=== PATIENT | male | born 1985 | race Caucasian/White ===

== ENCOUNTER 2016-12-08 21:01 | Emergency (ER) | payer SELFPAY ==
[2016-12-08 21:37] VITALS: BP 149/93; O2SAT 99
--- NOTE | 2016-12-08 22:32 | ED.PDOC ---
History of Present Illness - General Chief Complaint: General Stated Complaint: painful urination, toothache Time Seen by Provider: 12/08/16 21:28 Source: patient, RN notes reviewed, Vital Signs reviewed Exam Limitations: no limitations - History of Present Illness Initial Comments: Patient comes in with burning with urination for the past 4-5 days. Denies penile discharge. No abdominal, back or testicular pain. Reports only one sexual partner for the past 9 years. He also is c/o a toothache for the past 3 days. R lower molar. Does not have a dentist. Timing/Duration: constant - 4-5 days Severity: moderate Improving Factors: nothing Worsening Factors: other - urinating Associated Symptoms: denies symptoms Allergies/Adverse Reactions: Allergies NO KNOWN ALLERGY Allergy (Verified 12/08/16 21:36) Home Medications: Ambulatory Orders Amoxicillin [Amoxil] 500 mg PO TID #21 cap 12/08/16 Review of Systems - Review of Systems Constitutional: States: no symptoms reported EENTM: States: see HPI, mouth pain - Toothache Respiratory: States: no symptoms reported Cardiology: States: no symptoms reported Gastrointestinal/Abdominal: States: no symptoms reported Genitourinary: States: see HPI, dysuria. Denies: frequency Musculoskeletal: States: no symptoms reported Skin: States: no symptoms reported Neurological: States: no symptoms reported All other Systems: No Change from Baseline Past Medical History (General) - Patient Medical History Hx Seizures: No Hx Stroke: No Hx Dementia: No Hx Asthma: No Hx of COPD: No Hx Cardiac Disorders: No Hx Congestive Heart Failure: No Hx Pacemaker: No Hx Hypertension: No Hx Thyroid Disease: No Hx Diabetes: No Hx Gastroesophageal Reflux: No Hx Renal Disease: No Hx Cancer: No Hx of HIV: No Hx Hepatitis C: No Hx MRSA: No Surgical History: no surgical history - Vaccination History Hx Tetanus, Diphtheria Vaccination: Yes Hx Influenza Vaccination: No Hx Pneumococcal Vaccination: No - Social History Hx Tobacco Use: No Hx Chewing Tobacco Use: No Hx Alcohol Use: No Hx Substance Use: No Hx Substance Use Treatment: No Hx Depression: No Feels Threatened In Home Enviroment: No Feels Threatened In a Relationship: No Hx Physical Abuse: No Hx Emotional Abuse: No Hx Suspected Abuse: No Family Medical History - Family History Mother Family History: Unknown Physical Exam - Physical Exam General Appearance: Alert, Comfortable, No apparent distress, Well Developed, Well Groomed, Well Hydrated, Well Nourished Ears, Nose, Throat: other - dental caries R lower 2nd molar, no gum swelling or erythema Neck: normal inspection Respiratory: lungs clear, normal breath sounds, no respiratory distress, no accessory muscle use Cardiovascular/Chest: regular rate, rhythm, no gallop, no murmur Gastrointestinal/Abdominal: normal bowel sounds, non tender, soft, no organomegaly, other - : normal penis, scrotum and testicles. No erythema or tenderness. Neurologic: alert, normal mood/affect, oriented x 3 Skin Exam: normal color, warm/dry Lymphatic: no adenopathy - no inguinal adenopathy. Comments: Vital Signs 12/08/16 21:05 Temperature 101.0 F H Pulse Rate [ 99 H monitor] Respiratory 18 Rate Blood Pressure 149/93 [Right Arm] O2 Sat by Pulse 99 Oximetry Progress - Results/Orders Results/Orders: Laboratory Tests 12/08/16 12/08/16 12/08/16 21:40 23:20 23:20 WBC 5.8 RBC 4.21 L Hgb 13.5 L Hct 39.1 L MCV 92.9 MCH 32.0 H MCHC 34.4 RDW 12.7 Plt Count 174 MPV 8.1 Absolute Neuts (auto) 4.90 Absolute Lymphs (auto) 0.30 L Absolute Monos (auto) 0.50 Absolute Eos (auto) 0.00 Absolute Basos (auto) 0.10 Neutrophils % 84.1 H Lymphocytes % 5.4 L Monocytes % 8.9 Eosinophils % 0.0 L Basophils % 1.6 Sodium 133 L Potassium 3.7 Chloride 98 L Carbon Dioxide 26 Anion Gap 12.7 BUN 11 Creatinine 1.07 BUN/Creatinine Ratio 10.3 Random Glucose 103 Serum Osmolality 266.0 L Calcium 9.0 Total Bilirubin 0.4 AST 30 ALT 29 Alkaline Phosphatase 47 Serum Total Protein 7.2 Albumin 4.3 Globulin 2.9 Albumin/Globulin Ratio 1.5 Urine Color Yellow Urine Appearance Clear Urine pH 7.5 Ur Specific [place] 1.020 Urine Protein Negative Urine Glucose (UA) Negative Urine Ketones Negative Urine Blood Small H Urine Nitrite Negative Urine Bilirubin Negative Urine Urobilinogen 0.2 Ur Leukocyte Esterase Negative Urine RBC 1-3 Urine WBC 3-5 H Ur Epithelial Cells 0 Urine Bacteria Rare Departure - Departure Clinical Impression: Dysuria, Dental caries Fever Qualifiers: Fever type: unspecified Qualified Code(s): R50.9 - Fever, unspecified Time of Disposition: 23:52 Disposition: Discharge to Home or Self Care Condition: Good Departure Forms: ED Discharge - Pt. Copy, Patient Portal Self Enrollment Instructions: DI for Dysuria -- Adult, DI for Tooth Decay Diet: resume usual diet Activity: increase activity as tolerated Prescriptions: Amoxicillin [Amoxil] 500 mg PO TID #21 cap Home Medications: Ambulatory Orders Amoxicillin [Amoxil] 500 mg PO TID #21 cap 12/08/16
[2016-12-08] MEDS ORDERED: ACETAMINOPHEN 500 MG TAB PO ONE (22:38)
[2016-12-08 23:37] VITALS: TEMP 100.2
[2016-12-08] MEDS ORDERED: AMOXICILLIN 500 MG CAP PO ONE (23:51)
== END 2016-12-08 23:57 | disposition home or self-care (01) ==
LOC: ER 21:01
DX: R30.0 Dysuria (principal); K02.9 Dental caries, unspecified; R50.9 Fever, unspecified

== ENCOUNTER 2016-12-11 01:02 | Emergency (ER) | payer SELFPAY ==
[2016-12-11] MEDS ORDERED: IBUPROFEN 200 MG TAB PO ONE (01:50)
[2016-12-11] MEDS ORDERED: ONDANSETRON ODT 8 MG TAB SL ONE (01:50)
--- NOTE | 2016-12-11 01:53 | ED.PDOC ---
History of Present Illness - General Source: patient, RN notes reviewed, Vital Signs reviewed Exam Limitations: no limitations - History of Present Illness Initial Comments: Patient comes in with c/o fever, ROCHA and nausea. ROCHA is frontal & behind his eyes. Took Tylenol prior to coming to ER. He was seen here on 12/08/16 w/ c/o dysuria and dental pain. Labs and evaluation were unremarkable at that time. He was started on Amoxicillin for his dental pain. Patient reports he is feeling worse. 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 Denies: cough, short of breath Cardiology: States: palpitations. Denies: chest pain Gastrointestinal/Abdominal: States: nausea, vomiting. Denies: abdominal pain Genitourinary: States: dysuria Musculoskeletal: States: no symptoms reported Skin: States: no symptoms reported Neurological: States: headache All other Systems: No Change from Baseline <Gemma Jay - Last Filed: 12/11/16 06:49> Past Medical History (General) - Patient Medical History Hx Seizures: No Hx Stroke: No Hx Dementia: No Hx Asthma: No Hx of COPD: No Hx Cardiac Disorders: No Hx Congestive Heart Failure: No Hx Pacemaker: No Hx Hypertension: No Hx Thyroid Disease: No Hx Diabetes: No Hx Gastroesophageal Reflux: No Hx Renal Disease: No Hx Cancer: No Hx of HIV: No Hx Hepatitis C: No Hx MRSA: No Surgical History: no surgical history - Vaccination History Hx Tetanus, Diphtheria Vaccination: Yes Hx Influenza Vaccination: No Hx Pneumococcal Vaccination: No Immunizations Up to Date: No Immunizations Comment: STATES HAS HAD tETANUS VACCINE IN LAST 5 YEARS - Social History Hx Tobacco Use: No Hx Chewing Tobacco Use: No Hx Alcohol Use: No Hx Substance Use: No Hx Substance Use Treatment: No Hx Depression: No Hx Physical Abuse: No Hx Emotional Abuse: No Hx Suspected Abuse: No - Triage Comment ED Triage Comment: states, was in ED last Tue. night with UTI and placed on Amox PO TID and began med on AM. States, drinking lots of water also. C /O H/A frontal area and eyes hurt also. Lights hurt my eyes. Took 2 Tylenol RS at 2330 states. N&V x 1. Fever 102.3 oral at triage. <Gemma Jay - Last Filed: 12/11/16 06:49> Family Medical History - Family History Mother Family History: Unknown <Gemma Jay - Last Filed: 12/11/16 06:49> Physical Exam - Physical Exam General Appearance: Alert, Ill Appearing, Well Developed, Well Groomed, Well Hydrated, Well Nourished Eye Exam: bilateral normal ENT Exam: other - Frontal sinus tenderness Neck: non-tender, full range of motion, supple, normal inspection Respiratory: chest non-tender, lungs clear, normal breath sounds, no respiratory distress, no accessory muscle use Cardiovascular/Chest: regular rate, rhythm, no gallop, no murmur Gastrointestinal/Abdominal: normal bowel sounds, soft, no organomegaly, tenderness - suprapubic w/o guarding or rebound Neurologic: alert, normal mood/affect, oriented x 3 Skin Exam: normal color, warm/dry Comments: Vital Signs 12/11/16 01:22 Temperature 102.3 F H Pulse Rate [ 75 RIGHT WRIST] Respiratory 20 Rate Blood Pressure 152/84 [Right Arm] O2 Sat by Pulse 98 Oximetry <Gemma Jay - Last Filed: 12/11/16 06:49> Progress - Progress Progress: 12/11/16 02:31 Flu and strep testing are negative. Given Ibuprofen 800mg PO for fever C/O that his heart beat feels funny - was normal on exam. Will check labs, give IV fluids and get EKG & CXR 12/11/16 04:14 Still awaiting CXR reading but once again labs are benign with a normal WBC count and no obvious source of fever/infection. Patient is resting comfortably in bed until questioned then continues to say he is doing terrible. Still c/o ROCHA and now c/o chest pain. Fever improved to 100 with Ibuprofen. Now 100.8. Will give Tylenol #3 for ROCHA and fever. 12/11/16 05:07 Vital signs are good. Temp 99.2. Still c/o ROCHA. 12/11/16 05:26 Still w/ ROCHA and all over body aches. Turns head side to side w/o pain but does report pain with neck flexion. Will do a lumbar puncture to check for meningitis. - Results/Orders Results/Orders: Laboratory Tests 12/11/16 12/11/16 12/11/16 01:50 02:45 02:45 WBC 4.0 L RBC 4.09 L Hgb 13.3 L Hct 37.6 L MCV 91.9 MCH 32.5 H MCHC 35.3 RDW 12.7 Plt Count 188 MPV 7.8 Absolute Neuts (auto) 2.60 Absolute Lymphs (auto) 0.90 L Absolute Monos (auto) 0.40 Absolute Eos (auto) 0.00 Absolute Basos (auto) 0.00 Neutrophils % 66.4 Lymphocytes % 21.4 Monocytes % 10.9 H Eosinophils % 0.3 L Basophils % 1.0 Sodium 136 Potassium 4.3 Chloride 106 Carbon Dioxide 24 Anion Gap 10.3 L BUN 15 Creatinine 0.84 BUN/Creatinine Ratio 17.9 Random Glucose 118 H Serum Osmolality 273.9 L Calcium 8.8 Total Bilirubin 0.5 AST 25 ALT 24 Alkaline Phosphatase 35 L D Serum Total Protein 7.3 Albumin 4.0 Globulin 3.3 Albumin/Globulin Ratio 1.2 Urine Color Urine Appearance Urine pH Ur Specific [place] Urine Protein Urine Glucose (UA) Urine Ketones Urine Blood Urine Nitrite Urine Bilirubin Urine Urobilinogen Ur Leukocyte Esterase Urine RBC Urine WBC Ur Epithelial Cells Urine Bacteria Group A Strep DNA Negative 12/11/16 03:25 WBC RBC Hgb Hct MCV MCH MCHC RDW Plt Count MPV Absolute Neuts (auto) Absolute Lymphs (auto) Absolute Monos (auto) Absolute Eos (auto) Absolute Basos (auto) Neutrophils % Lymphocytes % Monocytes % Eosinophils % Basophils % Sodium Potassium Chloride Carbon Dioxide Anion Gap BUN Creatinine BUN/Creatinine Ratio Random Glucose Serum Osmolality Calcium Total Bilirubin AST ALT Alkaline Phosphatase Serum Total Protein Albumin Globulin Albumin/Globulin Ratio Urine Color Yellow Urine Appearance Clear Urine pH 7.0 Ur Specific [place] 1.020 Urine Protein Trace Urine Glucose (UA) Negative Urine Ketones 15 H Urine Blood Negative Urine Nitrite Negative Urine Bilirubin Negative Urine Urobilinogen 1.0 Ur Leukocyte Esterase Negative Urine RBC 0-1 Urine WBC 5-10 H Ur Epithelial Cells 0-1 Urine Bacteria Rare Group A Strep DNA - EKG/XRAY/CT EKG: Sinus, no ST T wave changes Comments: Rate 73 XRAY: chest - No acute process per Radiologist <Gemma Jay - Last Filed: 12/11/16 06:49> - Progress Progress: 12/11/16 08:26 Care handed off to me at 0700. Patient assessed and documentation/labs/x-ray/ EKG reviewed. Patient in no distress. Vitals normal. He is complaining of concern for his chest. Repeat EKG obtained as well as Cardiac Enzymes ordered and Pt placed on Telemetry. All testing normal and relayed to Patient who was reassured. Also labs returned from visit a few days ago showing positive Chlamydia. Pt treated with Azithromycin 1,000 mg PO x 1. Patient given another 1 L NS IV bolus prior to departure. Patient comfortable with plan to d/c home with strict return precautions. He is to maintain well hydrated with water and continue taking ibuprofen three times a day along with Rx'd T3 as needed/as directed. CRP obtained and essentially normal. Monotest negative. Patient is stable for discharge home. <Jon Vila - Last Filed: 12/11/16 08:33> Procedures - Additional Procedures Additional Procedures: lumbar puncture - Attempted X4 w/o success. <Gemma Jay - Last Filed: 12/11/16 06:49> Departure - Departure Diet: resume usual diet Activity: increase activity as tolerated <Gemma Jay - Last Filed: 12/11/16 06:49> - Departure Time of Disposition: 08:55 <Jon Vila - Last Filed: 12/11/16 08:33> - Departure Clinical Impression: Viral meningitis, unspecified Disposition: Discharge to Home or Self Care Condition: Good Departure Forms: ED Discharge - Pt. Copy, Patient Portal Self Enrollment Instructions: DI for Viral Meningitis -- Adult Prescriptions: Acetamin W/Cod #3 Tab [Tylenol #3 Tab] 1 ea PO Q4-6H PRN #20 tab PRN Reason: Pain -- Moderate To Severe Home Medications: Ambulatory Orders Amoxicillin [Amoxil] 500 mg PO TID #21 cap 12/08/16 Acetamin W/Cod #3 Tab [Tylenol #3 Tab] 1 ea PO Q4-6H PRN #20 tab 12/11/16 Additional Instructions: Stay well hydrated with water - at least 1.5 to 2 Liters daily. Take over the counter ibuprofen 600 mg (3 tablets of the 200 mg strength tabs) three times a day as needed for fever/aches. Work excuse for Tuesday. If condition worsens/unable to function return to ER for re-evaluation.
[2016-12-11] MEDS ORDERED: SODIUM CHLORIDE 0.9% 1000ML 1,000 ML IVS ONE ×3 (02:28→07:47)
[2016-12-11] MEDS ORDERED: ACETAMINOPHEN W/COD #3 TAB 1 EA TAB PO ONE (04:16)
[2016-12-11] MEDS ORDERED: POVIDONE IODINE 10 % 15 ML UD TOP ONE (05:31)
[2016-12-11] MEDS ORDERED: HYDROmorphone HCL INJ 2 MG/ML VIAL IV ONE (06:31)
--- NOTE | 2016-12-11 06:44 | RAD ---
EXAM DESCRIPTION: Chest,2 Views CLINICAL HISTORY: Fever/"Heart feels funny" COMPARISON: None. FINDINGS: Frontal and lateral views of the chest. The cardiomediastinal silhouette has normal size and contour. No consolidation, pneumothorax, or pleural effusion. No displaced rib fractures identified. Upper abdominal soft tissues are unremarkable. IMPRESSION: 1. No acute pulmonary process identified. Electronically signed by: Robert Powell 12/11/2016 6:43 AM CDT
[2016-12-11] MEDS ORDERED: AZITHROMYCIN 250 MG TAB PO ONE (07:56)
[2016-12-11 08:56] VITALS: BP 135/76; TEMP 97.8; O2SAT 97
== END 2016-12-11 08:56 | disposition home or self-care (01) ==
LOC: ER 01:02
DX: A87.9 Viral meningitis, unspecified (principal); A74.9 Chlamydial infection, unspecified
CPT/HCPCS: 36415; 71020; 80053; 81001; 82550; 82553; 84484; 85025; 86140; 86403; 86701; 87070; 87086; 87502; 87651; 93005; J1170; J7030; Q0144

== ENCOUNTER 2017-02-16 01:23 | Emergency (ER) | payer SELFPAY | END 2017-02-16 02:45 | disposition home or self-care (01) | LOC: ER 01:23 | DX: K04.7 Periapical abscess without sinus (principal); Z53.21 Procedure and treatment not carried out due to patient leaving prior to being seen by health care provider ==

== ENCOUNTER 2017-03-07 21:51 | Emergency (ER) | payer SELFPAY ==
--- NOTE | 2017-03-07 22:45 | RAD ---
Examination: XR CHEST 2 VIEWS dated 03/07/2017 10:11 PM [employer] History: cough Comparison: 12/11/2016 Technique: Frontal and lateral views of the chest Findings: The lungs are clear bilaterally. No pneumothorax or pleural effusion. The cardiomediastinal silhouette is within normal limits. Impression: No acute disease. Electronically signed by: Reed Dias MD 03/07/2017 10:44 PM [employer]
[2017-03-07] MEDS ORDERED: AZITHROMYCIN 250 MG TAB PO ONE (22:49)
[2017-03-07] MEDS ORDERED: predniSONE 20 MG TAB PO ONE (22:49)
--- NOTE | 2017-03-07 22:55 | ED.PDOC ---
History of Present Illness - General Chief Complaint: Respiratory Problem Stated Complaint: cough, congestion Time Seen by Provider: 03/07/17 22:03 Source: patient Exam Limitations: no limitations - History of Present Illness Initial Comments: the patient is a 31-year-old male presenting to the emergency room secondary to a significant cough and some rattling in his chest with a cough for the last 24 hours. He denies any history of asthma and only very rarely smokes. His kids have had a viral respiratory illness recently. Mild shortness of breath. He is oxygenating well. No real runny nose. Very mild sore throat. Timing/Duration: 24 hours Severity: moderate Improving Factors: nothing Worsening Factors: nothing Associated Symptoms: cough, malaise Allergies/Adverse Reactions: Allergies NO KNOWN ALLERGY Allergy (Verified 12/08/16 21:36) Home Medications: Ambulatory Orders Azithromycin 500 mg PO DAILY #5 tab 03/07/17 Review of Systems - Review of Systems Constitutional: States: malaise EENTM: States: throat pain Respiratory: States: cough, short of breath Cardiology: States: no symptoms reported Gastrointestinal/Abdominal: States: no symptoms reported Genitourinary: States: no symptoms reported Musculoskeletal: States: no symptoms reported Skin: States: no symptoms reported Neurological: States: no symptoms reported Endocrine: States: no symptoms reported Hematologic/Lymphatic: States: no symptoms reported All other Systems: No Change from Baseline Past Medical History (General) - Patient Medical History Hx Seizures: No Hx Stroke: No Hx Dementia: No Hx Asthma: No Hx of COPD: No Hx Cardiac Disorders: No Hx Congestive Heart Failure: No Hx Pacemaker: No Hx Hypertension: No Hx Thyroid Disease: No Hx Diabetes: No Hx Gastroesophageal Reflux: No Hx Renal Disease: No Hx Cancer: No Hx of HIV: No Hx Hepatitis C: No Hx MRSA: No Surgical History: no surgical history - Vaccination History Hx Tetanus, Diphtheria Vaccination: Yes Hx Influenza Vaccination: No Hx Pneumococcal Vaccination: No - Social History Hx Tobacco Use: No Hx Chewing Tobacco Use: No Hx Alcohol Use: No Hx Substance Use: No Hx Substance Use Treatment: No Hx Depression: No Hx Physical Abuse: No Hx Emotional Abuse: No Hx Suspected Abuse: No Family Medical History - Family History Mother Family History: Unknown Physical Exam - Physical Exam General Appearance: Alert, Comfortable, No apparent distress Eye Exam: bilateral normal Ears, Nose, Throat: hearing grossly normal, normal ENT inspection, normal pharynx Neck: full range of motion, supple Respiratory: no respiratory distress, no accessory muscle use, rhonchi - bilaterally. Good air movement. No wheezing. 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 He has tested negative for the flu and the chest x-ray looks reassuring. He does however obviously have a bronchitis. While all of this is most likely viral in origin,we will cover for possible bacterial etiologies with azithromycin for 5 days. He was given 1 dose of oral prednisone here tonight. Motrin can also help with reducing inflammation and the cough. Robitussin can be used additionally as a mild cough suppressant. He needs to keep himself well hydrated. ER warnings were given for any worsening. - Results/Orders Results/Orders: rapid flu test is negative. Chest x-ray shows no significant infiltrates. No fluid overload. Departure - Departure Clinical Impression: Acute bronchitis Qualifiers: Bronchitis organism: unspecified organism Qualified Code(s): J20.9 - Acute bronchitis, unspecified Disposition: Discharge to Home or Self Care Condition: Fair Departure Forms: ED Discharge - Pt. Copy, Patient Portal Self Enrollment Instructions: DI for Acute Bronchitis Diet: regular diet Activity: increase activity as tolerated Prescriptions: Azithromycin 500 mg PO DAILY #5 tab Home Medications: Ambulatory Orders Azithromycin 500 mg PO DAILY #5 tab 03/07/17 Additional Instructions: the patient is a 31-year-old male presenting to the emergency room secondary to cough for the last 24-48 hours. He has tested negative for the flu and the chest x-ray looks reassuring. He does however obviously have a bronchitis. While all of this is most likely viral in origin,we will cover for possible bacterial etiologies with azithromycin for 5 days. He was given 1 dose of oral prednisone here tonight. Motrin can also help with reducing inflammation and the cough. Robitussin can be used additionally as a mild cough suppressant. He needs to keep himself well hydrated. ER warnings were given for any worsening.
[2017-03-07 23:15] VITALS: BP 126/73; TEMP 98.4; O2SAT 99
== END 2017-03-07 23:06 | disposition home or self-care (01) ==
LOC: ER 21:51
DX: J20.9 Acute bronchitis, unspecified (principal)
CPT/HCPCS: 71046; 87804; J7512; Q0144

== ENCOUNTER 2017-05-03 11:26 | Emergency (ER) | payer OTHER ==
[2017-05-03 11:34] VITALS: TEMP 97.3; O2SAT 95
[2017-05-03] MEDS ORDERED: LIDOCAINE 1% 10 ML VIAL INJ ONE (11:43)
[2017-05-03] MEDS ORDERED: POVIDONE IODINE 10 % 15 ML UD TOP ONE (11:44)
[2017-05-03] MEDS ORDERED: NEOMYCIN-BACITRACIN-POLYMYXIN 0.9 GM UD TOP ONE (11:51)
--- NOTE | 2017-05-03 11:54 | ED.PDOC ---
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 Denies: cough, short of breath, wheezing Cardiology: Denies: chest pain, palpitations, syncope Gastrointestinal/Abdominal: Denies: no symptoms reported, abdominal pain, constipation, diarrhea, nausea Genitourinary: States: no symptoms reported Musculoskeletal: States: no symptoms reported Skin: States: other - tazor spike in back Neurological: States: anxiety Endocrine: States: no symptoms reported Past Medical History (General) - Patient Medical History Hx Seizures: No Hx Stroke: No Hx Dementia: No Hx Asthma: No Hx of COPD: No Hx Cardiac Disorders: No Hx Congestive Heart Failure: No Hx Pacemaker: No Hx Hypertension: No Hx Thyroid Disease: No Hx Diabetes: No Hx Gastroesophageal Reflux: No Hx Renal Disease: No Hx Cancer: No Hx of HIV: No Hx Hepatitis C: No Hx MRSA: No Surgical History: no surgical history - Vaccination History Hx Tetanus, Diphtheria Vaccination: Yes Hx Influenza Vaccination: No Hx Pneumococcal Vaccination: No - Social History Hx Tobacco Use: No Hx Chewing Tobacco Use: No Hx Alcohol Use: No Hx Substance Use: Yes - meth and marijuana Hx Substance Use Treatment: No Hx Depression: No Hx Physical Abuse: No Hx Emotional Abuse: No Hx Suspected Abuse: No Family Medical History - Family History Mother Family History: Unknown Physical Exam - Physical Exam General Appearance: Alert, Anxious, No apparent distress Ears, Nose, Throat: hearing grossly normal, normal ENT inspection, normal pharynx Neck: non-tender, full range of motion, supple Respiratory: chest non-tender, lungs clear, normal breath sounds, no respiratory distress Cardiovascular/Chest: normal peripheral pulses, no edema, no JVD, no murmur, tachycardia Gastrointestinal/Abdominal: non tender, soft Back Exam: other - 2 tazor spikes in back, mobile afixed to skin 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 one required small incision with 11 blade, removed without difficulty or subsequent complication, neosporine applied to area with sterile bandage 05/03/17 11:58 ekg: rate 102, pr 152, qrs 80, qtc 422, sinus tachycardia, left PFB Departure - Departure Clinical Impression: Puncture wound ICD-10 Supporting Text: tazor wound to back, tazor spikes removal Time of Disposition: 11:55 Disposition: Care Home Condition: Excellent Departure Forms: ED Discharge - Pt. Copy, Patient Portal Self Enrollment Instructions: DI for Low Back Pain, DI for Minor Laceration Diet: resume usual diet Activity: increase activity as tolerated Home Medications: Ambulatory Orders NK [NK] 05/03/17
[2017-05-03 12:08] VITALS: BP 137/77
== END 2017-05-03 12:08 ==
LOC: ER 11:26
DX: S31.040A Puncture wound with foreign body of lower back and pelvis without penetration into retroperitoneum, initial encounter (principal); Y35.893A Legal intervention involving other specified means, suspect injured, initial encounter; Y92.9 Unspecified place or not applicable

== ENCOUNTER → 2017-07-04 | Outpatient (CLI) | payer OTHER | LOC: LAB.O 15:18 | DX: I10 Essential (primary) hypertension (principal) ==

== ENCOUNTER 2018-10-24 07:13 | Emergency (ER) | payer SELFPAY ==
[2018-10-24] MEDS ORDERED: AMOXICILLIN & POT CLAVULANATE 875 MG TAB PO ONE (07:37)
--- NOTE | 2018-10-24 07:40 | ED.PDOC ---
History of Present Illness - General Chief Complaint: Dental/Mouth Stated Complaint: left lower dental pain Time Seen by Provider: 10/24/18 07:16 Source: patient, RN notes reviewed, Vital Signs reviewed, RN/MD Exam Limitations: no limitations Additional Information: Patient is a 32 yo M with a past history of dental carries presenting with left lower jaw pain x 1 days. He states that the pain started yesterday evening with an abscess formation along the left lower mandible. He denies any fevers, chills, nausea, vomiting, SOB, dysphagia, or odynophagia. He states that he is tolerating PO without difficulty. He denies any recent dental procedures. He states that he has had had similar symptoms before that responded to abx. He denies any allergies to medications. He last took Tylenol for pain around 0200 this AM. Patient otherwise denies any complaints. - History of Present Illness Timing/Duration: gradual, yesterday EENT Location: mouth Prearrival Treatment: over the counter meds Improving Factors: nothing Worsening Factors: nothing Associated Symptoms: denies symptoms - other than, tooth pain Allergies/Adverse Reactions: Allergies NO KNOWN ALLERGY Allergy (Verified 10/24/18 07:30) Home Medications: Ambulatory Orders Acetaminophen W/ Codeine [Tylenol W/ CODEINE #3] 1 ea PO Q8H PRN 3 Days #10 10/24/18 Amoxicillin & Pot Clavulanate [Augmentin Tab] 875 mg PO BID 7 Days #14 tab 10/24/18 Lisinopril 20 mg PO BID 10/24/18 Review of Systems - Review of Systems Constitutional: States: no symptoms reported EENTM: States: see HPI Respiratory: States: no symptoms reported Gastrointestinal/Abdominal: States: no symptoms reported Past Medical History (General) - Patient Medical History Hx Seizures: No Hx Stroke: No Hx Dementia: No Hx Asthma: No Hx of COPD: No Hx Cardiac Disorders: No Hx Congestive Heart Failure: No Hx Pacemaker: No Hx Hypertension: No Hx Thyroid Disease: No Hx Diabetes: No Hx Gastroesophageal Reflux: No Hx Renal Disease: No Hx Cancer: No Hx of HIV: No Hx Hepatitis C: No Hx MRSA: No Surgical History: no surgical history - Vaccination History Hx Tetanus, Diphtheria Vaccination: Yes Hx Influenza Vaccination: No Hx Pneumococcal Vaccination: No - Social History Hx Tobacco Use: No Hx Chewing Tobacco Use: No Hx Alcohol Use: No Hx Substance Use: Yes - marijuana daily Hx Substance Use Treatment: No Hx Depression: No Hx Physical Abuse: No Hx Emotional Abuse: No Hx Suspected Abuse: No Family Medical History - Family History Mother Family History: Unknown Physical Exam - Physical Exam General Appearance: Comfortable, No apparent distress Throat Exam: pharynx normal, dental tenderness - L lower molar, mandibular swelling - near left lower molar with dental carries. no fluctuance under tongue or neck swelling Neck: non-tender, full range of motion, supple, normal inspection, trachea midline Cardiovascular/Respiratory: regular rate, rhythm, no M/R/G, normal peripheral pulses, no JVD, normal breath sounds, no respiratory distress Abdominal Exam: non-tender Neurologic: alert, oriented x 3 Skin Exam: normal color, warm/dry Progress - Progress Progress: 10/24/18 07:45 DDx: Dental carries, dentalgia, larry-apical abscess, cellulitis, abscess, dental fx, mandibular fx, Trevor's Angina Patient presented for evaluation of left sided dental pain. He was overall well appearing and non-toxic. He was also afebrile and hemodynamically stable. His symptoms and exam are suggestive of larry-apical abscess and dental abscess. There was no abscess that was drainable bed side. He had no symptoms or recent dental procedures to suggest Trevor's Angina. He was given Ibuprofen in ED for pain. He will be treated with Augmentin in ER and plan will be for discharge home with Rx for Augemtin BID x 7 days. He will also be given Tylenol with Codeine. Patient comfortable with plan for discharge home and outpatient follow- up. Departure - Departure Clinical Impression: Dental caries, Dental abscess Time of Disposition: 07:49 Condition: Good Departure Forms: ED Discharge - Pt. Copy, Patient Portal Self Enrollment Instructions: DI for Dental Pain Prescriptions: Acetaminophen W/ Codeine [Tylenol W/ CODEINE #3] 1 ea PO Q8H PRN 3 Days #10 PRN Reason: Pain Amoxicillin & Pot Clavulanate [Augmentin Tab] 875 mg PO BID 7 Days #14 tab Home Medications: Ambulatory Orders Acetaminophen W/ Codeine [Tylenol W/ CODEINE #3] 1 ea PO Q8H PRN 3 Days #10 10/24/18 Amoxicillin & Pot Clavulanate [Augmentin Tab] 875 mg PO BID 7 Days #14 tab 10/24/18 Lisinopril 20 mg PO BID 10/24/18 Additional Instructions: Please do not take any Tylenol while taking this new Tylenol with Codeine. Please do not drink alcohol, drive, or operate heavy machinery while taking Tylenol with Codeine. Please use Ibuprofen 800mg every 8 hours with food over the next few days to help with inflammation and pain.
[2018-10-24] MEDS ORDERED: IBUPROFEN 400 MG TAB PO ONE (07:44)
[2018-10-24] MEDS ORDERED: IBUPROFEN 200 MG TAB ONE (07:51)
[2018-10-24 08:16] VITALS: BP 158/103; TEMP 97.8; O2SAT 98
== END 2018-10-24 08:10 | disposition home or self-care (01) ==
LOC: ER 07:13
DX: K04.7 Periapical abscess without sinus (principal); K02.9 Dental caries, unspecified